=== PATIENT | female | born 1985 | race Asian ===

== ENCOUNTER 2017-09-26 21:55 | Emergency (ER) | payer OTHER ==
[2017-09-26] MEDS ORDERED: NS 1,000 ML IV ONE (22:22)
[2017-09-26 22:34] LABS: % IMMATURE GRANULYOCYTES 0.3 % (0.0-1.1); ABSOLUTE IMMATURE GRANULOCYTES 0.04 10^3/uL (0.00-0.10); ADD DIFF? NO; ADD MORPH? NO; ADD SCAN? NO; ATYPICAL LYMPHOCYTE FLAG 10 (0-99); FRAGMENT RBC FLAG 0 (0-99); HEMATOCRIT 45.6 % (38.0-47.0); HEMOGLOBIN 16.8 g/dL (12.6-16.3); LEFT SHIFT FLG 0 (0-99); LIPEMIA HEMOLYSIS FLAG 90 (0-99); MEAN CELL HEMOGLOBIN 32.3 pg (27.9-34.1); MEAN CELL HEMOGLOBIN CONCENTR. 36.8 g/dL (32.4-36.7); MEAN CELL VOLUME 87.7 fL (81.5-99.8); MEAN PLATELET VOLUME 9.6 fL (8.7-11.7); PLATELET CLUMPS FLAG 0 (0-99); PLATELET COUNT 196 10^3/uL (150-400); RED CELL DISTRIBUTION WIDTH 11.3 % (11.5-15.2)
--- NOTE | 2017-09-26 22:43 | EDPHY ---
H & P Stated Complaint: Heartburn X 2 weeks, fever earlier today Time Seen by Provider: 09/26/17 22:13 HPI/ROS: HPI The patient presents with epigastric abdominal pain which has been present for the last 2 weeks though worse this morning at about 5:30 a.m. when the patient awoke. Patient has been seen at [facility] and by [facility] and has been diagnosed with esophagitis and started on omeprazole about 1 week ago. Was feeling better for about a week and worse this morning. She felt somewhat weak and had a fever this morning. She went to [facility] and there had basic laboratory testing which revealed a leukocytosis of 13,000, otherwise normal basic metabolic panel and rapid flu testing. EKG was performed and was normal as well. The patient was febrile there with a temperature of 101.9 and tachycardic to 130. REVIEW OF SYSTEMS Constitutional: No fever, no chills. Eyes: No discharge. ENT: No sore throat. Cardiovascular: No chest pain, no palpitations. Respiratory: No cough, no shortness of breath. Gastrointestinal: Positive for epigastric pain, no vomiting. Genitourinary: No hematuria. Musculoskeletal: No back pain. Skin: No rashes. Neurological: No headache. 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 PHYSICAL General Appearance: Alert, no distress Eyes: Pupils equal and round no pallor or injection ENT, Mouth: Mucous membranes moist Respiratory: There are no retractions, lungs are clear to auscultation Cardiovascular: Regular rate and rhythm Gastrointestinal: Abdomen is soft and non-tender, no masses, bowel sounds normal Neurological: A&O, moves all extremities Skin: Warm and dry, no rashes Musculoskeletal: Neck is supple non tender Extremities: symmetrical, full range of motion Psychiatric: Patient is oriented X 3, there is no agitation Source: Patient Exam Limitations: No limitations - Personal History LMP (Females 10-55): 22-28 Days Ago Current Tetanus/Diphtheria Vaccine: Yes Current Tetanus Diphtheria and Acellular Pertussis (TDAP): Yes - Medical/Surgical History Hx Asthma: No Hx Chronic Respiratory Disease: No Hx Diabetes: No Hx Cardiac Disease: No Hx Renal Disease: No Hx Cirrhosis: No Hx Alcoholism: No Hx HIV/AIDS: No Hx Splenectomy or Spleen Trauma: No Other PMH: denies - Social History Smoking Status: Never smoked Constitutional: Initial Vital Signs Temperature (C) 36.4 C 09/26/17 21:58 Heart Rate 100 09/26/17 21:58 Respiratory Rate 16 09/26/17 21:58 Blood Pressure 113/80 09/26/17 21:58 O2 Sat (%) 98 09/26/17 21:58 O2 Delivery Mode Room Air Allergies/Adverse Reactions: almond Allergy (Verified 09/26/17 21:57) Home Medications: Medication Instructions Recorded Omeprazole 09/26/17 Medical Decision Making Procedures: Bedside right upper quadrant limited abdominal Ultrasound- performed and interpreted by me. Indication: Epigastric abdominal pain with history of fever Findings: Normal gallbladder with no gallstones, no pericholecystic fluid, no gallbladder wall thickening Impression: No sonographic evidence of acute cholecystitis or cholelithiasis Differential Diagnosis: 32-year-old female patient presents with epigastric abdominal pain, fever and weakness for the last 1 day. Symptoms have now mostly improved and she rates her pain as 2/10. She is afebrile here and mildly tachycardic. Differential diagnosis includes viral gastroenteritis, esophagitis, peptic ulcer , cholecystitis. In the emergency department, the patient was given 1 L of IV fluids for tachycardia with improvement in her heart rate below 100. She declined any medication for pain. Labs were checked and were unremarkable except for a mild leukocytosis of 12,000. Total bilirubin is somewhat elevated at 1.8, however I feel this is related to dehydration verses cholecystitis or cholelithiasis. She had a right upper quadrant bedside ultrasound performed by me which was normal did not demonstrate any gallstones. She felt well enough to go home and was discharged at and encouraged to maintain a bland diet, take plenty of fluids by mouth and to continue taking her omeprazole. If the pain continues, may need further studies or repeat labs, at this time however relatively asymptomatic and stable for discharge. - Data Points Laboratory Results: Laboratory Results 09/26/17 22:28 09/26/17 22:28 09/26/17 09/26/17 22:28 22:28 WBC 12.64 10^3/uL H 10^3/uL (3.80-9.50) RBC 5.20 10^6/uL 10^6/uL (4.18-5.33) Hgb 16.8 g/dL H g/dL (12.6-16.3) Hct 45.6 % % (38.0-47.0) MCV 87.7 fL fL (81.5-99.8) MCH 32.3 pg pg (27.9-34.1) MCHC 36.8 g/dL H g/dL (32.4-36.7) RDW 11.3 % L % (11.5-15.2) Plt Count 196 10^3/uL 10^3/uL (150-400) MPV 9.6 fL fL (8.7-11.7) Neut % (Auto) 82.6 % H % (39.3-74.2) Lymph % (Auto) 7.2 % L % (15.0-45.0) [place] % (Auto) 8.1 % % (4.5-13.0) Eos % (Auto) 1.6 % % (0.6-7.6) Baso % (Auto) 0.2 % L % (0.3-1.7) Nucleat RBC Rel Count 0.0 % % (0.0-0.2) Absolute Neuts (auto) 10.45 10^3/uL H 10^3/uL (1.70-6.50) Absolute Lymphs (auto) 0.91 10^3/uL L 10^3/uL (1.00-3.00) Absolute Monos (auto) 1.02 10^3/uL H 10^3/uL (0.30-0.80) Absolute Eos (auto) 0.20 10^3/uL 10^3/uL (0.03-0.40) Absolute Basos (auto) 0.02 10^3/uL 10^3/uL (0.02-0.10) Absolute Nucleated RBC 0.00 10^3/uL 10^3/uL (0-0.01) Immature Gran % 0.3 % % (0.0-1.1) Immature Gran # 0.04 10^3/uL 10^3/uL (0.00-0.10) Sodium 136 mEq/L mEq/L (134-144) Potassium 4.2 mEq/L mEq/L (3.5-5.2) Chloride 96 mEq/L L mEq/L (97-110) Carbon Dioxide 28 mEq/l mEq/l (22-31) Anion Gap 12 mEq/L mEq/L (8-16) BUN 17 mg/dL mg/dL (7-23) Creatinine 0.8 mg/dL mg/dL (0.6-1.0) Estimated GFR > 60 Glucose 102 mg/dL H mg/dL (70-100) Calcium 9.9 mg/dL mg/dL (8.5-10.4) Total Bilirubin 1.8 mg/dL H mg/dL (0.1-1.4) AST 20 IU/L IU/L (14-46) ALT 27 IU/L IU/L (9-52) Alkaline Phosphatase 66 IU/L IU/L (38-126) Total Protein 8.3 g/dL H g/dL (6.3-8.2) Albumin 4.7 g/dL g/dL (3.5-5.0) Lipase 80 IU/L IU/L (23-300) Medications Given: Discontinued Medications Sodium Chloride (Ns) 1,000 mls @ 0 mls/hr IV EDNOW ONE; Wide Open PRN Reason: Protocol Stop: 09/26/17 22:23 Last Admin: 09/26/17 22:26 Dose: 1,000 mls Departure - Departure Disposition: Home, Routine, Self-Care Clinical Impression: Epigastric abdominal pain Condition: Good Instructions: Diet for Stomach Ulcers and Gastritis (ED), Esophagitis (ED) Additional Instructions: Please return to the emergency department if your worse in any way. Otherwise, please follow-up with [facility] for a recheck in 1-2 days unless your feeling completely better. Please try to maintain a bland diet and drink plenty of fluids. If you have a fever, you can take Tylenol or ibuprofen. Referrals: [facility]ul[facility] [Clinic] - As per Instructions [facility] [Provider Group] - As per Instructions
[2017-09-26 22:45] LABS: ALANINE AMINOTRANSFERASE 27 IU/L (9-52); ALBUMIN 4.7 g/dL (3.5-5.0); ALKALINE PHOSPHATASE 66 IU/L (38-126); ANION GAP 12 mEq/L (8-16); ASPARTATE AMINOTRANSFERASE 20 IU/L (14-46); BILIRUBIN,TOTAL 1.8 mg/dL (0.1-1.4); CALCIUM 9.9 mg/dL (8.5-10.4); CARBON DIOXIDE 28 mEq/l (22-31); CHLORIDE 96 mEq/L (97-110); CREATININE 0.8 mg/dL (0.6-1.0); GLOMERULAR FILTRATION RATE > 60; GLUCOSE 102 mg/dL (70-100); POTASSIUM 4.2 mEq/L (3.5-5.2); SODIUM 136 mEq/L (134-144); TOTAL PROTEIN 8.3 g/dL (6.3-8.2)
[2017-09-26 23:26] VITALS: BP 127/82; PULSE 105; RESP 17; TEMP 98.2; O2SAT 97
== END 2017-09-26 23:24 | disposition home or self-care (01) ==
DX: R10.13 Epigastric pain (principal); E86.9 Volume depletion, unspecified